=== PATIENT | male | born 1985 | race Caucasian/White ===

== ENCOUNTER 2017-04-09 12:34 | Emergency (ER) | payer MEDICAID ==
[2017-04-09 12:44] VITALS: BP 120/71; PULSE 67; RESP 16; TEMP 98.4; O2SAT 99
--- NOTE | 2017-04-09 12:54 | ED PDOC ---
HPI: Back Time Seen by Provider: 04/09/17 12:45 Chief Complaint (Nursing): Back Pain Chief Complaint (Provider): low back pain History Per: Patient Additional Complaint(s): 31-year-old male presents to emergency department with lower back pain. Patient has had low back pain on and off for 10 years. He states that this past Sunday he lifted a heavy object and pain became worse. Patient took 1 200 mg Motrin tab on Sunday but this did not help the pain. He has not taken anything since then. Patient denies bowel or bladder dysfunction. He states he has never been seen by his primary doctor for this ongoing issue. Past Medical History Reviewed: Historical Data, Nursing Documentation, Vital Signs Vital Signs: Last Vital Signs Temp 98.4 F 04/09/17 12:39 Pulse 67 04/09/17 12:39 Resp 16 04/09/17 12:39 BP 120/71 04/09/17 12:39 Pulse Ox 99 04/09/17 12:39 - Medical History PMH: Back Problems (low back pain on and off for 10 yers) - Surgical History Surgical History: No Surg Hx - Family History Family History: States: No Known Family Hx - Living Arrangements Living Arrangements: With Family - Social History Current smoker - smoking cessation education provided: Yes ("vape") Alcohol: None Drugs: Denies - Home Medications Home Medications: Ambulatory Orders Medication Instructions Recorded Atropine/DiphenoxylateAtropine 5 ml PO Q8 #50 ml 09/21/14 [Lomotil] Dicyclomine [Bentyl] 10 mg PO QID #20 cap 09/21/14 Amoxicillin/Clavulanate [Augmentin 1 tab PO BID #20 tab 10/04/15 500 MG-125 MG] Naproxen [Naprosyn] 500 mg PO BID PRN #30 tab 10/04/15 Cyclobenzaprine [Cyclobenzaprine 10 mg PO TID PRN #20 tab 04/09/17 HCl] Ibuprofen [Motrin Tab] 800 mg PO Q8 PRN #20 tab 04/09/17 - Allergies Allergies/Adverse Reactions: Allergies Allergy/AdvReac Type Severity Reaction Status Date / Time No Known Allergies Allergy Verified 10/04/15 12:07 Review of Systems ROS Statement: Except As Marked, All Systems Reviewed And Found Negative Constitutional: Negative for: Fever Cardiovascular: Negative for: Chest Pain Respiratory: Negative for: Cough Gastrointestinal: Negative for: Nausea, Vomiting Genitourinary Male: Negative for: Dysuria, Frequency, Incontinence, Hematuria Musculoskeletal: Positive for: Back Pain (on and off for 10 years). Negative for: Leg Pain Neurological: Negative for: Weakness, Numbness, Headache, Dizziness Physical Exam - Reviewed Nursing Documentation Reviewed: Yes Vital Signs Reviewed: Yes - Physical Exam Appears: Positive for: Well, Non-toxic, No Acute Distress Skin: Negative for: Rash Eye Exam: Positive for: Normal appearance, EOMI, PERRL Neck: Positive for: Normal Cardiovascular/Chest: Positive for: Regular Rate, Rhythm Respiratory: Positive for: Normal Breath Sounds Gastrointestinal/Abdominal: Positive for: Soft. Negative for: Tenderness Back: Positive for: Vertebral Tenderness (lumbar region, negative bilateral straight leg raise, patient able to heel and toe walk), Muscle Spasm (lumbar region). Negative for: L CVA Tenderness, R CVA Tenderness Extremity: Positive for: Normal ROM. Negative for: Pedal Edema Neurologic/Psych: Positive for: Alert, Oriented, Gait (steady) - ECG O2 Sat by Pulse Oximetry: 99 Pulse Ox Interpretation: Normal Medical Decision Making Medical Decision Making: Impression: low back pain Plan: Motrin PO dose Patient was offered toradol but he declined this med. He took motrin dose instead. Rx given for motrin and flexeril. Patient was instructed to follow up with PMD or ortho for further evaluation of ongoing back pain. Disposition - Clinical Impression Clinical Impression: Back pain - Patient ED Disposition Is Patient to be Admitted: No Counseled Patient/Family Regarding: Diagnosis, Need For Followup, Rx Given - Disposition Referrals: Julio Burks MD [Family Provider] - Scarlet Miranda MD [Staff Provider] - Disposition: Routine/Home Disposition Time: 13:03 Condition: STABLE Additional Instructions: Take rx meds as directed as needed for pain. Follow up VIMAL with your primary care doctor or with referred orthopedist. Prescriptions: Cyclobenzaprine [Cyclobenzaprine HCl] 10 mg PO TID PRN #20 tab PRN Reason: Muscle Spasm Ibuprofen [Motrin Tab] 800 mg PO Q8 PRN #20 tab PRN Reason: Pain, Moderate (4-7) Instructions: Back Pain (ED) Forms: [employer] ([place])
== END 2017-04-09 13:18 | disposition home or self-care (01) ==
LOC: H.ER 12:34
DX: M54.5 Low back pain (principal)

== ENCOUNTER 2018-05-02 16:03 | Emergency (ER) | payer MEDICAID ==
[2018-05-02 16:13] VITALS: BP 152/96; PULSE 62; RESP 16; TEMP 98.4; O2SAT 100
--- NOTE | 2018-05-02 17:05 | ED PDOC ---
HPI: Dental Pain/Injury Time Seen by Provider: 05/02/18 16:13 Chief Complaint (Nursing): Dental Pain Chief Complaint (Provider): Dental Pain History Per: Patient History/Exam Limitations: no limitations Onset/Duration Of Symptoms: Hrs Current Symptoms Are (Timing): Still Present Additional Complaint(s): 32 y/o male presents to the ED complaining of left dental pain. Patient notes that in January he saw a dentist and was told he required a procedure on the left upper tooth. Developed pain to the left upper and lower teeth. Pain radiates up the head, into left ear, and down the left side of throat. Earlier today he tried taking Aleve without relief. Denies fever, trauma, pain with swallowing, head injury, hearing changes, or visual changes. Past Medical History Reviewed: Historical Data, Nursing Documentation, Vital Signs Vital Signs: Last Vital Signs Temp 98.4 F 05/02/18 16:10 Pulse 62 05/02/18 16:10 Resp 16 05/02/18 16:10 BP 152/96 H 05/02/18 16:10 Pulse Ox 100 05/02/18 16:10 - Medical History PMH: Back Problems (low back pain on and off for 10 yers) - Family History Family History: States: No Known Family Hx - Home Medications Home Medications: Ambulatory Orders Medication Instructions Recorded Atropine/DiphenoxylateAtropine 5 ml PO Q8 #50 ml 09/21/14 [Lomotil] Dicyclomine [Bentyl] 10 mg PO QID #20 cap 09/21/14 Amoxicillin/Clavulanate [Augmentin 1 tab PO BID #20 tab 10/04/15 500 MG-125 MG] Naproxen [Naprosyn] 500 mg PO BID PRN #30 tab 10/04/15 Cyclobenzaprine [Cyclobenzaprine 10 mg PO TID PRN #20 tab 04/09/17 HCl] Ibuprofen [Motrin Tab] 800 mg PO Q8 PRN #20 tab 04/09/17 Ibuprofen [Motrin Tab] 800 mg PO Q8 PRN #15 tab 05/02/18 Tramadol HCl [Ultram] 50 mg PO BID PRN #8 tablet 05/02/18 - Allergies Allergies/Adverse Reactions: Allergies Allergy/AdvReac Type Severity Reaction Status Date / Time No Known Allergies Allergy Verified 10/04/15 12:07 Review of Systems ROS Statement: Except As Marked, All Systems Reviewed And Found Negative Constitutional: Negative for: Fever, Chills, Other (Hearing loss) Eyes: Negative for: Vision Change ENT: Positive for: Ear Pain, Throat Pain, Other (Left toothache, no difficulty swallowing). Negative for: Throat Swelling Cardiovascular: Negative for: Chest Pain, Light Headedness Respiratory: Negative for: Shortness of Breath Physical Exam - Reviewed Nursing Documentation Reviewed: Yes Vital Signs Reviewed: Yes - Physical Exam Appears: Positive for: Non-toxic, In Acute Distress (minimal painful distress) Head Exam: Positive for: ATRAUMATIC, NORMAL INSPECTION, NORMOCEPHALIC Skin: Positive for: Normal Color, Warm, Dry Eye Exam: Positive for: Normal appearance ENT: Positive for: TM Is/Are (non-bulging and non-erythematous bilaterally), Other (Able to swallow without pain; Dental caries noted in the left maxillary and mandibular molar and pre-molar teeth). Negative for: Pharyngeal Erythema, Tonsillar Swelling (or erythema) Neck: Positive for: Normal, Painless ROM, Supple Cardiovascular/Chest: Positive for: Regular Rate, Rhythm Respiratory: Positive for: Normal Breath Sounds. Negative for: Accessory Muscle Use, Respiratory Distress Neurologic/Psych: Positive for: Alert, Oriented (x3). Negative for: Motor/Sensory Deficits - ECG O2 Sat by Pulse Oximetry: 100 (RA) Pulse Ox Interpretation: Normal Medical Decision Making Medical Decision Making: Impression: Dental pain Initial Plan: --Toradol 30 mg IM Patient is stable for discharge home. Counseled regarding diagnosis and the importance of follow up with dentist. Scribe Attestation: Documented by Altagracia Lanza, acting as a scribe for Shilo Garcia PA-C. Provider Scribe Attestation: All medical record entries made by the Scribe were at my direction and personally dictated by me. I have reviewed the chart and agree that the record accurately reflects my personal performance of the history, physical exam, medical decision making, and the department course for this patient. I have also personally directed, reviewed, and agree with the discharge instructions and disposition. Disposition - Clinical Impression Clinical Impression: Toothache - Patient ED Disposition Is Patient to be Admitted: No Counseled Patient/Family Regarding: Diagnosis, Need For Followup - Disposition Referrals: [facility] [Outside] Disposition: Routine/Home Disposition Time: 16:35 Condition: STABLE Additional Instructions: DU TRAN, thank you for letting us take care of you today. Your provider was Senthil Butcher III, DO and you were treated for LEFT EAR PAIN, TOOTHACHE. The emergency medical care you received today was directed at your acute symptoms. If you were prescribed any medication, please fill it and take as directed. It may take several days for your symptoms to resolve. Return to the Emergency Department if your symptoms worsen, do not improve, or if you have any other problems. Please contact your doctor or call one of the physicians/clinics you have been referred to that are listed on the Patient Visit Information form that is included in your discharge packet. Bring any paperwork you were given at discharge with you along with any medications you are taking to your follow up visit. Our treatment cannot replace ongoing medical care by a primary care provider outside of the emergency department. Thank you for allowing the [facility] team to be part of your care today. If you had an X-Ray or CT scan: A Radiologist will review the ED reading if any change in treatment is needed we will contact you. If you had a blood, urine, or wound culture: It will take several days for the results, if any change in treatment is needed we will contact you. If you had an STI test: It will take 48 hours for the results. Please call after 1 week if you have not heard back. 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
== END 2018-05-02 16:53 | disposition home or self-care (01) ==
LOC: H.ER 16:03
DX: K08.89 Other specified disorders of teeth and supporting structures (principal)
CPT/HCPCS: 96372; 99282; J1885